=== PATIENT | female | born 1960 | race Caucasian/White ===

== ENCOUNTER → 2024-01-31 11:05 | Outpatient (REF) | payer MEDICARE, OTHER, SELFPAY | LOC: MRI 3T 11:05 | PROVIDERS: ATTENDING PHYSICIAN Nurse Practitioner; FAMILY PHYSICIAN Family Medicine | DX: Z15.01 Genetic susceptibility to malignant neoplasm of breast (principal); Z15.09 Genetic susceptibility to other malignant neoplasm | CPT/HCPCS: 77049; A9585 ==

== ENCOUNTER → 2024-02-03 08:28 | Outpatient (REF) | payer MEDICARE, OTHER, SELFPAY | LOC: MRI 3T 08:28 | PROVIDERS: ATTENDING PHYSICIAN Internal Medicine Gastroenterology; FAMILY PHYSICIAN Family Medicine | DX: Z91.89 Other specified personal risk factors, not elsewhere classified (principal) | CPT/HCPCS: 74183; A9575 ==

== ENCOUNTER → 2024-02-21 06:28 | Day surgery (SDC) | payer MEDICARE, OTHER, SELFPAY | LOC: GI 06:28 | PROVIDERS: ATTENDING PHYSICIAN Internal Medicine Gastroenterology | DX: K57.30 Diverticulosis of large intestine without perforation or abscess without bleeding (principal); K62.1 Rectal polyp; K64.8 Other hemorrhoids; Z86.0101 Personal history of adenomatous and serrated colon polyps | CPT/HCPCS: 45380; 88305 ==

== ENCOUNTER → 2025-01-30 18:06 | Outpatient (REF) | payer MEDICARE, OTHER, SELFPAY | LOC: MRI 3T 18:06 | PROVIDERS: ATTENDING PHYSICIAN Nurse Practitioner; FAMILY PHYSICIAN Family Medicine | DX: Z15.01 Genetic susceptibility to malignant neoplasm of breast (principal); Z15.09 Genetic susceptibility to other malignant neoplasm | CPT/HCPCS: 77049; A9585 ==

== ENCOUNTER 2025-03-28 21:23 | Emergency (ER) | payer MEDICARE, OTHER, SELFPAY ==
[2025-03-28 21:29] VITALS: BP 159/83
[2025-03-28 23:21] VITALS: BP 125/76
--- NOTE | 2025-03-28 23:32 | ED.GENMED ---
History of Present Illness
<Vicky Akers PA-C - Last Filed: 03/29/25 05:58>
General
Chief Complaint: Fall
Source: patient
Exam Limitations: none
Time Seen by Provider: 03/28/25 23:31
Nursing documentation reviewed up to this point in time: agreed with
History of Present Illness
History of Present Illness:
64-year-old female who presents to the ER today with concerns of headache and facial swelling following a fall. She reports that she was walking outside to walk her [place] bulldog outside when she believes that her [place] bulldog could have tugged
her, causing her to fall down this 6 stairs outside the house and hit her head on the concrete. Patient believes that after she fell, she did not lose consciousness after hitting her head but does recall a brief period of time of confusion before
waking with her family members helping her up. She adamantly denies syncope and states that this happened to her before normally she gets dizzy or lightheaded before. She reports that she does recall the events prior but does not exactly remember
how things happened. She notes some pain in her right hand and wrist as well. She notes some pain in her neck. She denies any dizziness or lightheadedness. Denies any chest pain or shortness of breath. Denies any abdominal pain. She denies any
blurry vision or visual loss.
Past History
<Vicky Akers PA-C - Last Filed: 03/29/25 05:58>
Past History
ED Past Medical History: None
ED Past Surgical History: Gynecological (Oophorectomy) and Orthopedic
Social History
Tobacco: Non-smoker
Review of Systems
<Vicky Akers PA-C - Last Filed: 03/29/25 05:58>
Review of Systems
All Other Systems: ROS reviewed and negative except as documented in HPI and ROS
Phy Exam
<Vicky Akers PA-C - Last Filed: 03/29/25 05:58>
Physical Exam
Physical Exam:
General: Patient is well appearing and in no acute distress; non-toxic
Skin: Warm and dry, no rashes or lesions
Head: Normocephalic, atraumatic
Eyes: Sclera non-icteric. EOMs intact.
No entrapment. Negative Sidel sign. Small linear area of fluorescein uptake on the right cornea
Cardiac: Regular rate and rhythm, no murmurs
Peripheral Vascular: No lower extremity swelling or edema, brisk capillary refill, 2+ radial and ulnar and brachial pulses on the right
Pulm: Normal respiratory effort, no wheezes, rales, rhonchi
Abdomen: No abdominal tenderness to palpation
Musculoskeletal: No palpable bony deformity noted to the right upper extremity, some swelling noted at the base of the thumb with overlying ecchymosis, full range of motion of upper extremity
Neuro: CN II-XII intact, no focal neurologic deficits.
Psychiatric: Appropriate mood and affect.
Course
<Vicky Akers PA-C - Last Filed: 03/29/25 05:58>
Orders/Labs/Results
Orders:
Orders
03/28/25 21:32
CT Cervical Spine W/o Iv Contr Urgent
Comment:
Reason For Exam: fall
CT Head W/o Iv Contrast Urgent
Comment:
Reason For Exam: head strike
03/28/25 21:38
Facial Bones wo Contrast CT [CT Facial Bones W/o Iv Contras] Urgent
Comment:
Reason For Exam: FALL
03/28/25 23:50
Ibuprofen [Motrin] 800 mg PO NOW STA
03/29/25 00:05
CR Hand - Right Min 3 Views Urgent
Reason For Exam: right hand pain
CR Wrist - Right Min 3 Views Urgent
Reason For Exam: right wrist pain
03/29/25 01:39
Tetanus/Diphth/Acelpertussis [Adacel] 0.5 ml IM .ONCE ONE
03/29/25 02:33
[place] Wrist Right-Tx ONCE
Ofloxacin [Ocuflox] See Dose Instructions OPHTH NOW STA
03/29/25 02:58
Oxycodone/Acetaminophen [Percocet 5/325] 1 tablet PO NOW STA
03/29/25 04:25
Fluorescein Sodium [Ful-Amarilis] 1 mg .ROUTE .STK-MED ONE
Purified Water Eye Wash [Dacriose Eye Wash Solution] 120 ml .ROUTE .STK-MED ONE
03/29/25 04:27
Tetracaine HCl [Tetracaine 0.5% Ophthalmic Solution] 1 drop .ROUTE .STK-MED ONE
Vital Signs
Initial and Last Documented VS:
Initial Vital Signs
Pulse Resp BP Pulse Ox
93 15 159/83 98
03/28/25 21:29 03/28/25 21:29 03/28/25 21:29 03/28/25 21:29
Last Documented Vital Signs
Pulse Resp BP Pulse Ox
89 16 136/77 95
03/29/25 02:02 03/29/25 02:02 03/29/25 02:02 03/29/25 02:02
<Marilynn Mendes MD - Last Filed: 03/29/25 01:26>
Orders/Labs/Results
Orders:
Orders
03/28/25 21:32
CT Cervical Spine W/o Iv Contr Urgent
Comment:
Reason For Exam: fall
CT Head W/o Iv Contrast Urgent
Comment:
Reason For Exam: head strike
03/28/25 21:38
Facial Bones wo Contrast CT [CT Facial Bones W/o Iv Contras] Urgent
Comment:
Reason For Exam: FALL
03/28/25 23:50
Ibuprofen [Motrin] 800 mg PO NOW STA
03/29/25 00:05
CR Hand - Right Min 3 Views Urgent
Reason For Exam: right hand pain
CR Wrist - Right Min 3 Views Urgent
Reason For Exam: right wrist pain
03/29/25 01:39
Tetanus/Diphth/Acelpertussis [Adacel] 0.5 ml IM .ONCE ONE
03/29/25 02:33
[place] Wrist Right-Tx ONCE
Ofloxacin [Ocuflox] See Dose Instructions OPHTH NOW STA
03/29/25 02:58
Oxycodone/Acetaminophen [Percocet 5/325] 1 tablet PO NOW STA
03/29/25 04:25
Fluorescein Sodium [Ful-Amarilis] 1 mg .ROUTE .STK-MED ONE
Purified Water Eye Wash [Dacriose Eye Wash Solution] 120 ml .ROUTE .STK-MED ONE
03/29/25 04:27
Tetracaine HCl [Tetracaine 0.5% Ophthalmic Solution] 1 drop .ROUTE .STK-MED ONE
Vital Signs
Initial and Last Documented VS:
Initial Vital Signs
Pulse Resp BP Pulse Ox
93 15 159/83 98
03/28/25 21:29 03/28/25 21:29 03/28/25 21:29 03/28/25 21:29
Last Documented Vital Signs
Pulse Resp BP Pulse Ox
89 16 136/77 95
03/29/25 02:02 03/29/25 02:02 03/29/25 02:02 03/29/25 02:02
Teresalt;Vicky Akers PA-C - Last Filed: 03/29/25 05:58>
MDM/Problems Addressed
Differential Diagnosis Includes:
Differentials include cervical fracture, intracerebral hemorrhage, orbital fracture, corneal abrasion
MDM/Problems Addressed:
64-year-old female presents ER today with concerns of a headache and facial swelling following a fall. On physical exam she is in no acute distress, she does have significant periorbital swelling on the right with a small abrasion on the forehead.
She has no midline cervical spinal tenderness. She has 5 out of 5 strength in bilateral upper extremities. She does have small amount of fluorescein in the right cornea with subjective conjunctival hemorrhage. Negative Morelia sign. Will initiate
antibiotics to cover for corneal abrasion. She will follow-up closely with her power plant assistant. On my independent review of hand and wrist x-ray, I am not able to appreciate fracture however considering joint tenderness and swelling, will place in
universal wrist splint for the next few days. Patient stable for discharge. Discussed follow-up closely with PCP
<Vicky Akers PA-C - Last Filed: 03/29/25 05:58>
*Pulse Oximetry
SaO2: 100
Oxygen Mode of Delivery: Room air
Patient hypoxic: no
*Critical Care Note
Total Time (30-74mins, 75-104mins- exclusive of procedures): Not Applicable
ED Attending Note
<Vicky Akers PA-C - Last Filed: 03/29/25 05:58>
-
Portions of this chart may have been created with voice recognition software.� Occasional wrong word or��sound alike� substitutions may have occurred due to the inherent limitations of voice recognition software.
<Marilynn Mendes MD - Last Filed: 03/29/25 01:26>
ED Attending Note
Patient seen and examined by attending physician: Yes
I performed the substantive portion of visit, reviewed & personally made and approve the management plan that is documented in note by myself or SARAN.: Yes
ED Attending Note:
I have seen and evaluated the patient with a [id number] encounter. I have spoken to the [SARAN] and involved in the medical history, the physical exam, medical decision making.
Evaluation and management service: agree unless noted differently below.
Results interpretation: agree unless noted differently below.
Patient is a 64-year-old woman presenting to the emergency room after a fall. Patient does not know much of the fall but states that maybe her dog pulled the leash too hard causing her to fall hitting her head. She did not lose consciousness.
History otherwise is limited given poor historian. She is complaining of eye pain as well as wrist pain. She is not on any blood thinners. She has a similar admission to the right side of her right eye. She does state that she does have some
pain but could also be to the subconjunctival hemorrhage. She does have an power plant assistant that she follows with. My evaluation patient is resting comfortably. She does have significant periorbital swelling and ecchymosis. She does have a small
subconjunctival hemorrhage to the right inferior orbit. Extraocular muscles are intact. Pupils are equal bilaterally. Neuroexam does show equal strength in upper and lower extremities with normal sensation. Will obtain CT scan as well as x-rays.
Will stain eye to evaluate for any corneal abrasions. Anticipate discharge with close ophthalmology follow-up.
Discharge Plan
Departure
Patient Disposition: Home (Routine Discharge)
Date of Disposition: 03/29/25
Time of Disposition: 03:25
Patient with high blood pressure during this ER visit?: Yes
Condition: Good
Discharge Problem:
Fall, Contusion of right wrist, Concussion
Instructions: Wound Care (DC), Preventing falls in adults, BLOOD PRESSURE
Prescriptions:
No Action
tamoxifen [Nolvadex] 20 MG tablet
20 mg PO HS
ojutrfhu-uyi-xkcrr acid-vit K [Multi For Her 50 Plus] 1 EACH capsule
1 ea PO DAILY
calcium carbonate 600 MG tablet
600 mg PO QPM
cholecalciferol (vitamin D3) 1,000 UNITS tablet
5,000 units PO DAILY
biotin 1,000 MCG tablet,chewable
1,000 mcg PO Q48H
Menopause One
1 tab PO DAILY
Vitamin B Complex
QPM
Potassium Gluconate
595 mg PO DAILY
magnesium oxide 400 MG tablet
1 mg PO DAILY
oxycodone-acetaminophen 5 MG/325 MG tablet
1 - 2 tab PO Q4HPRN PRN (Reason: moderate - severe pain) Qty: 20 0RF
cyclobenzaprine 10 MG tablet
10 mg PO TIDPRN PRN (Reason: spasm) Qty: 9 0RF
lidocaine 1 PATCH adhesive patch,medicated
1 patch S DAILY Qty: 1 0RF
Referrals:
Dyllan Price DO [Family Provider, [facility]]
Activity Restrictions/Additional Instructions:
As discussed, your CAT scans show no evidence of fracture of the facial bones. There is no evidence of acute intracranial normality or fracture of the cervical spine. You can continue to take Ibuprofen and Tylenol as needed for your symptoms.
Please follow up with your power plant assistant. Please follow up with your primary care provider for reassessment, please wear the splint for the next few days and ice the areas as needed. I recommend using the eyedrops in the right eye 4 times a day
for the next 5 days.
PLEASE RETURN TO THE ER SHOULD YOU DEVELOP LIGHTHEADEDNESS, DIZZINESS, INTERNAL NAUSEA OR VOMITING, CHEST PAIN, SHORTNESS OF BREATH, DIFFICULTY WITH SPEECH, WEAKNESS 1 SIDE BY WRIST OTHER, OR ANY OTHER SIGNS OR SYMPTOMS WORRISOME TO YOU.
Interventions
Interventions:
*General Assessment Last Done: 03/28/25 21:29
*Neglect/Abuse Screening Last Done: 03/28/25 21:29
*ED COVID-19 Vaccine History Last Done: 03/29/25 04:14
*ED Influenza Vaccine History Last Done: 03/28/25 21:29
[facility] Fall Risk Assessment Tool Last Done: 03/28/25 21:23
*Risk Screen - Suicide (C-SSRS) Last Done: 03/28/25 21:29
*Nursing Disposition Last Done: 03/29/25 04:14
ED-Musculoskeletal Assessment Last Done: 03/28/25 23:12
ED- Neurological Assessment Last Done: 03/28/25 23:12
ED-Skin Assessment Last Done: 03/28/25 23:12
Discharge Date and Time
Discharge Date/Time: 12/25/25 04:15
Print Language: CZECH
[2025-03-28] MEDS: MOTRIN 800 MG PO (23:56)
[2025-03-29] MEDS: ADACEL 0.5 ML IM (01:57)
[2025-03-29 02:02] VITALS: BP 136/77
[2025-03-29] MEDS: OCUFLOX 1 DROP OPHTH (02:48)
[2025-03-29] MEDS: PERCOCET 5/325 1 TABLET PO (03:11)
== END 2025-03-29 04:15 | disposition home or self-care (01) ==
LOC: EMR 21:23
PROVIDERS: EMERGENCY PHYSICIAN Student in an Organized Health Care Education/Training Program; FAMILY PHYSICIAN Family Medicine
DX: S60.211A Contusion of right wrist, initial encounter (principal); S06.0X0A Concussion without loss of consciousness, initial encounter; W22.09XA Striking against other stationary object, initial encounter; Y93.01 Activity, walking, marching and hiking; Z23 Encounter for immunization; R51.9 Headache, unspecified; R22.0 Localized swelling, mass and lump, head; Z90.721 Acquired absence of ovaries, unilateral
CPT/HCPCS: 99284; 90471; 70450; 70486; 72125; 73110; 73130; 90715